=== PATIENT | female | born 1960 | race Caucasian/White ===

== ENCOUNTER 2016-09-12 15:52 | Observation (INO) | payer OTHER ==
[~2016-09-12] VITALS: Ht 162.6 cm; Wt 125.7 kg
[~2016-09-12 15:52] MED LIST: ALBU8.5H2 INHALATION; AMLO2.5T PO; ASPI-973 PO; ATRV10T PO; CALC-190 PO; CARV6.252 PO; CEPH500C PO; FLUT15.88 NOSTRIL; FURO-129 PO; HYDR1KIT TP; INSU100V28 SUBQ; ISOS30TA4 PO; LEVO175T5 PO; LISI-571 PO; LORA10CA PO; MULT-1018 PO; NITR0.4T6 SL; NPH,100V11 SUBQ; OXYC1TAB24 PO; RANI150C4 PO
[2016-09-12 15:57] VITALS: BP 163/71; PULSE 70; RESP 18; O2SAT 97
--- NOTE | 2016-09-12 16:04 | ED.REPORT ---
HPI-General Illness Date of Service Sep 12, 2016 ED Provider: Tony Dc MD Pt is a 56 year old female with a hx of heart attack, CHF, and a defibrillator presenting to the ED complaining of squeezing 8/10 chest pain radiating up towards left neck and jaw onset at 1530 today. Pain described as aching. The pain began while the pt was at rest at work. She reports similar symptoms last night which she took 2 Nitro for with some relief. She did not have any more Nitro left at home so she did not take any today. She states that this pain may be similar to the pain she had when she had a heart attack 2 years ago. Pain was not exacerbated by anything. Denies SOB, fever, chills, vision changes, or any other symptoms at this time. Nursing Notes Stated Complaint: HEART PAIN Chief Complaint: Chest Pain Nursing Notes Reviewed: Yes Allergies: Coded Allergies: azithromycin (Verified Adverse Reaction, Unknown, stomach cramps, 09/12/16) codeine (Verified Adverse Reaction, Unknown, Rash,Itching,, 03/02/15) Rash, vomiting, swelling hydrocodone (Unverified Adverse Reaction, Unknown, Nausea,Vomiting, ) Scheduled Aspirin (Aspirin) 81 Mg Tablet 81 MG PO HS Carvedilol (Carvedilol) 25 Mg Tablet 25 MG PO BID Digoxin (Digoxin) 125 Mcg Tablet 125 MCG PO HS Furosemide (Furosemide) 40 Mg Tablet 40 MG PO QAM Insulin Regular, Human (HUMulin-R U100 Insulin Vial) 100 Unit/1 Ml Vial 10-25 UNITS SUBQ TIDAC STATES AVERAGES ~20 UNITS/MEAL Isosorbide MN ER (Isosorbide MN ER) 30 Mg Tab.er.24h 30 MG PO QAM Levothyroxine (Levothyroxine) 175 Mcg Tablet 175 MCG PO QAM Lisinopril (Lisinopril) 10 Mg Tablet 10 MG PO BID Magnesium Oxide (Magox 400) 400 Mg Tablet 200 MG PO HS Multivitamin (Multi Vitamin Daily) 1 Each Tablet 1 EACH PO QAM NPH, Human Insulin Isophane (HUMulin-N U100 Insulin Vial) 100 Unit/1 Ml Vial 50 UNITS SUBQ BIDWM Nystatin (Nystatin) 60 Applic/15 Gm Cream 1 APPLIC TOP QAM Scheduled PRN Albuterol HFA (Proair HFA) 8.5 Gm Hfa.aer.ad 2 PUFFS INHALATION Q4H PRN PRN For Wheezing Fluticasone Propionate (Fluticasone Propionate) 50 Mcg/Actuation [place].susp 1 SPRAY NOSTRIL DAILY PRN PRN For Congestion Hydrocortisone (Adv Allergy Collection Kit) 2.5 % Kit 1 EACH TP BID PRN PRN For Itching Loperamide (Loperamide) 2 Mg Tablet 2 MG PO ASDIRECTED PRN PRN For Diarrhea or Loose Stool Loratadine (Claritin) 10 Mg Capsule 10 MG PO DAILY PRN PRN For Congestion Nitroglycerin SL (Nitroglycerin SL) 0.4 Mg Tab.subl 0.4 MG SL DIRECTED PRN PRN For Chest Pain Ranitidine (Ranitidine) 150 Mg Capsule 150 MG PO BID PRN PRN HEARTBURN OR REFLUX General Time Seen by MD: 16:04 Chief Complaint Chest pain Hx Obtained From: Patient Arrived By: Walk-in Sudden in Onset?: Yes Onset Occurred: 1 - 4 hours ago Symptom Duration: Since onset Location: : Chest Severity: Current: Pain level 2 out of 10 Severity: Maximum: Pain level 8 out of 10 Recent Healthcare: No recent doctor visit, No recent hospitalization Similar Sx Previous: Yes Past Medical History Past Medical History Notes: Cardiac Cath in December 2014 shows a chronic total occlusion of the LAD. No stent was placed. Past Medical History Heart attack 2 years ago Gastroparesis Neuropathy Reports: Congestive heart failure (most recent ejection fraction was 33%), Coronary artery disease, Diabetes mellitus (Type I), Hypertension Past Surgical History Defibrillator Cardiac catheterization Leg surgery Multiple eye surgeries Reports: Family History Both parents had Afib Smoking History Never Smoker Social History Alcohol Use: Denies alcohol use Drug Use: Denies drug use Ambulatory Status Independent Review of Systems Full Review of Systems Constitutional: Denies: Chills, Fever Respiratory: Denies: Shortness of breath Cardiovascular: Reports: Chest pain Neurologic: Denies: Vision change Complete sys rev & neg: except as marked. Physical Exam Nursing note and vitals reviewed. Constitutional: Well-developed, well-nourished. Not diaphoretic. Head: Normocephalic and atraumatic. Mouth/Throat: Oropharynx is clear and moist. No oropharyngeal exudate. Eyes: EOM are normal. Pupils are equal, round, and reactive to light. Neck: Supple, no tracheal deviation. Cardiovascular: Normal rate, regular rhythm. Equal and intact distal pulses throughout. Pulmonary/Chest: Effort normal and breath sounds normal. No respiratory distress. Abdominal: Soft. No distension. There is no tenderness, rebound, or guarding. Bowel sounds present. Musculoskeletal: Range of motion grossly intact, moving all extremities. No edema or tenderness appreciated. Neurological: AOx3. Grossly nonfocal exam. Strength and sensation intact and equal to bilateral upper and lower extremities. Skin: Warm and dry, no rashes or pallor appreciated. Psychiatric: Appropriate mood and affect. Behavior appears normal. Vital Signs Vital Signs Date Time Temp Pulse Resp B/P Pulse Ox O2 Delivery O2 Flow Rate FiO2 09/12/16 21:15 72 20 127/56 96 Room Air 09/12/16 20:50 72 16 135/52 95 Room Air 09/12/16 18:01 69 16 135/56 98 Room Air 09/12/16 15:57 36.7 70 18 163/71 97 Room Air Initial VS: Reviewed Interpretation & Diagnostics Lab Results Interpretation Result Diagram: 09/12/16 1629 09/12/16 1629 Test 09/12/16 16:29 09/12/16 16:30 09/12/16 18:09 White Blood Count 10.4th/mm3 (3.8-10.1) Red Blood Count 3.71mil/mm3 (3.90-5.20) Hemoglobin 10.3g/dL (12.0-15.6) Hematocrit 32.4% (35.0-46.0) Mean Corpuscular Volume 87.3fL (81-100) Mean Corpuscular Hemoglobin 27.8pg (27.0-35.0) Mean Corpuscular Hemoglobin Concent 31.8% (32.0-37.0) Red Cell Distribution Width 15.4% (12.3-15.4) Platelet Count 262bil/L (150-400) Neutrophils (%) (Auto) 62.6% (40-74) Lymphocytes (%) (Auto) 28.3% (14-46) Monocytes (%) (Auto) 6.4% (4-12) Eosinophils (%) (Auto) 2.1% (0-5) Basophils (%) (Auto) 0.3% (0-3) Sodium Level 135mEq/L (134-144) Potassium Level 4.1mEq/L (3.5-5.2) Chloride Level 94mEq/L (97-108) Carbon Dioxide Level 25mmol/L (18-29) Blood Urea Nitrogen 25mg/dL (6-24) Creatinine 0.91mg/dL (0.57-1.00) Estimat Glomerular Filtration Rate 92mL/min (>59) Glucose Level 97mg/dL (60-99) Calcium Level 9.2mg/dL (8.5-10.1) Magnesium Level 2.0mg/dL (1.6-2.6) Total Bilirubin 0.3mg/dL (0.0-1.2) Aspartate Amino Transf (AST/SGOT) 19U/L (0-50) Alanine Aminotransferase (ALT/SGPT) 18U/L (0-32) Alkaline Phosphatase 87U/L (25-150) Total Creatine Kinase 88U/L (21-215) Creatine Kinase MB 2.1ng/mL (0.0-5.3) Creatine Kinase MB % % (0.0-5.0) Troponin T < 0.010ug/L (0.0-0.011) Total Protein 7.6g/dL (6.4-8.4) Albumin 3.8g/dL (3.4-5.0) Hold Holt Top Tube Received (Received) Hold Urine Received (Received) ECG Interpretation ECG Interpretation: QRS now upright in v4. Otherwise no significant change. Time: 16:11 Interpreted by: ED physician Normal ECG Interpretation: Normal rate (71), Normal sinus rhythm X-Ray Chest Interpretation Chest Xray Interpretation: IMPRESSION: Stable cardiomegaly. No acute pulmonary findings. Dictated by: Fatimah Bueno M.D. on 09/12/2016 at 16:40 View: Portable, 1 view Interpretation / Wet Read by: Interpret - Radiologist Re-Eval/Medical Decision Med Decision/Clinical Course This is a 56-year-old female with a complex past medical history including severe multivessel coronary disease and CHF presenting to the ED for evaluation of chest pain that feels similar to previous angina. Nonexertional. Negative troponin. EKG shows no acute ischemic changes compared to previous. White count 10.4. Hemoglobin 10.3 stable from previous. Negative chest x ray. According to cath in December 2014, pt has a chronic total occlusion of the LAD. No stent was placed at that time. Discussed the case with Dr. Downs. Given concern for unstable angina/ACS, patient was started on heparin, nitroglycerin drip, and given clopidogrel. Plan admission for further management and evaluation. Discussed this with the patient at length. Time of Eval: 20:00 Patient Status: Condition improved Re-Evaluation/Progress Note: Discussed plan for admission. Pt understands and agrees. Consultation #1: Referral / Consult Name: Iggy Downs MD Consulted With: Cardiology Call Returned at: 19:11 Note: Wants 300 clopidogrel, nitro drip and Heparin drip. Consultation #2: Referral / Consult Name: Yandel Hernandez MD Consulted With: Hospitalist Call Returned at: 19:58 Tin Recovery Worker: Will see patient, Agrees with plan, Accepts admit Counseled Regarding: Diagnosis, Lab results, Need for admission Discharge & Departure Primary Impression: Chest pain Chest pain type: unspecified Qualified Code: R07.9 - Chest pain, unspecified Disposition: ADMITTED TO HOSPITAL Discharge Condition All VS Reviewed: Yes Condition: Improved Referrals: Alex Horowitz DO (PCP) Joana Barton MD, Stephen, MD Crit Care Except Billable Proc Time Spent: 30-74 minutes (30) Services Performed: Patient management by me, Time spent at bedside, Reviewing test results, Reviewing imaging, Discussing patient care, Documentation in record Critical Care Notes: Please see MDM. Garcia Attestation Portions of this note were transcribed by Hillary Hemphill. I, Dr. Dc personally performed the history, physical exam and medical decision-making; I reviewed and confirmed the accuracy of the information in the transcribed note. Signed by: Jose Pino, 09/12/2016 at 1958. copies to: Alex Horowitz DO; Joana Barton MD; Ry Barcenas MD Sanderson, William B MD Sep 12, 2016 16:04 HILLARY HEMPHILL Sep 12, 2016 16:17
[2016-09-12 16:32] LABS: BASOPHILS % (AUTO) 0.3 % (0-3); EOSINOPHILS % (AUTO) 2.1 % (0-5); MONOCYTES % (AUTO) 6.4 % (4-12); Mean Corpuscular Hemoglobin 27.8 pg (27.0-35.0); Mean Corpuscular Volume 87.3 fL (81-100); NEUTROPHILS % (AUTO) 62.6 % (40-74); Platelet Count 262 bil/L (150-400)
--- NOTE | 2016-09-12 16:43 | DRSVH ---
PROCEDURE: X-RAY CHEST ONE VIEW, PORTABLE ([id number]) INDICATIONS: CP TECHNIQUE: One view of the chest was acquired. COMPARISON: [facility], CR, XR CHEST 2VW, 03/19/2016, 14:24. FINDINGS: Surgical changes and devices: Failing cardiac defibrillator is unchanged. Lungs and pleura: No pleural effusions or pneumothorax. Lungs are clear. Mediastinum: Mediastinal contours appear normal. Heart size is enlarged, as before. Bones and chest wall: No suspicious bony lesions. Overlying soft tissues appear unremarkable. IMPRESSION: Stable cardiomegaly. No acute pulmonary findings. Dictated by: Fatimah Bueno M.D. on 09/12/2016 at 16:40 Approved by: Fatimah Bueno M.D. on 09/12/2016 at 16:40
[2016-09-12 17:21] LABS: TROPONIN T < 0.010 ug/L (0.0-0.011)
[2016-09-12 18:01] VITALS: BP 135/56; PULSE 69; RESP 16; O2SAT 98
[2016-09-12] MEDS ORDERED: Nitroglycerin 50 mg/250 mL D5W 50,000 MCG in IV Premix 1 EACH IV ONE (19:10)
[2016-09-12] MEDS ORDERED: Heparin 25K Unit/500mL 0.45 NS 25,000 UNIT in IV Premix 1 EACH IV ONE (19:20)
[2016-09-12] MEDS ORDERED: Heparin 5,000 Unit/mL Inj IVPUSH ONE (19:20)
[2016-09-12] MEDS ORDERED: LOPE2TAB32 PO (20:43)
[2016-09-12] MEDS ORDERED: DIGO125T73 PO (20:43)
[2016-09-12] MEDS ORDERED: MAGN400T29 PO (20:43)
[2016-09-12] MEDS ORDERED: MYCC TOP (20:43)
[2016-09-12] MEDS ORDERED: CARV25TA2 PO (20:43)
[2016-09-12] MEDS ORDERED: LISI10TA PO (20:43)
[2016-09-12] MEDS ORDERED: FURO40TA4 PO (20:43)
[2016-09-12 20:50] VITALS: BP 135/52; PULSE 72; RESP 16; O2SAT 95
[2016-09-12 21:15] VITALS: BP 127/56; PULSE 72; RESP 20; O2SAT 96
[2016-09-12 22:30] VITALS: BP 132/58; PULSE 71; RESP 16; O2SAT 98
--- NOTE | 2016-09-12 23:33 | PCM.HPMED ---
Subjective Date of Service Sep 12, 2016 Primary Provider: Admitting Physician: Lloyd Acevedo MD Primary Care Physician: Jairo Felton DO Attending Physician: Lloyd Acevedo MD Chief Complaint: Chest pain History of Present Illness: Alicia Abernathy is a 56 year old woman with past medical history of diabetes mellitus complicated by polyneuropathy including gastroparesis and lower extremity neuropathy, retinopathy, hypothyroidism, hypertension, TANYA on CPAP and obesity with prior history of WI and ischemic cardiomyopathy with reduced ejection fraction of 35-40% status post AICD implantation who presents to the [facility] emergency department today due to left-sided chest pain starting yesterday while at rest. The patient first noted chest pain yesterday which was relieved by her nitroglycerin but again returned this morning at which point she decided to come to the hospital. Yesterday at the worst point of her chest pain she did note a radiation from her chest to her left jaw and also to her left scapula. She denies any palpitations, fevers, chills, diaphoresis, nausea, vomiting or GERD. The patient has had left heart catheterization which did show a chronic LAD lesion. Of note the patient also states that she has recently developed psoriasis on her elbows and ankles and has developed bilateral joint swelling of her ankles, knees, wrists and elbows over the last several months. In the emergency department her vital signs were stable but notable for hypertension with blood pressure 163/71. Troponin was negative and EKG failed to show any acute ischemic changes. A cardiology consultation was obtained. Dr. Downs recommended a loading dose of Plavix, nitroglycerin drip and heparin drip. Patient currently feels chest pain-free Review of Systems: A comprehensive review of systems was conducted with the patient and found to be negative except as above in the History of Present Illness. Allergies Coded Allergies: azithromycin (Verified Adverse Reaction, Unknown, stomach cramps, 09/12/16) codeine (Verified Adverse Reaction, Unknown, Rash,Itching,, 03/02/15) Rash, vomiting, swelling hydrocodone (Unverified Adverse Reaction, Unknown, Nausea,Vomiting, ) Home Medications Alicia Abernathy. [id number] 1960 05/13/2016 10:55 AM 03/10 Start Date Medication Directions Stop Date 12/14/2014 aspirin 81 mg tablet,delayed release take 1 tablet by oral route every day 02/21/2016 atorvastatin 10 mg tablet take1 tablet by oral route every day 07/16/2015 Bactroban 2 % topical ointment apply by topical route 3 times every day a small amount to the affected area 07/18/2015 BD INSULIN SYR 1 ML [id number] USE TO INJECT INSULIN FOUR TIMES A DAY carvedilol 25 mg tablet take 1 tablet by oral route 2 times every day with food Claritin Liqui-Gel 10 mg capsule 03/19/2016 codeine 10 mg-guaifenesin 100 mg/5 mL oral liquid take 2.5 milliliter by oral route every bedtime as needed 03/22/2012 diabetic supplies, linkedü. Kit DIABETIC EXTRA-DEPTH SHOES and INSOLES 10/05/2015 digoxin 125 mcg tablet take 1 tablet by oral route every day 04/14/2016 Guaiatussin AC 10 mg-100 mg/5 mL oral liquid take 5-10 milliliter by oral route every 4 hours as needed for cough maybe just at bedtime 01/21/2016 Humulin N 100 unit/mL subcutaneous suspension INJECT 20-30units SUBCUTANEOUSLY wit every meal 01/21/2016 Humulin R 100 unit/mL injection solution INJECT 20-30 UNITS SUBCUTANEOUSLY BEFORE MEALS FOR DIABETES. EACH VIAL EXPIRES 28 DAYS AFTER FIRST USE. Imodium A-D 2 mg tablet take 2 tablet by oral route after 1st loose stool and 1 tablet (2 mg) after each next bowel movement; do not exceed 16 mg in 24hrs 01/21/2016 Insulin Syringe 1 mL 30 gauge x 5/16" uses insulin 4x a day 02/13/2016 isosorbide mononitrate ER 30 mg tablet,extended release 24 hr take 1 tablet by oral route every day in the morning 09/14/2015 Lasix 40 mg tablet take 1 tablet by oral route every day 04/17/2016 levothyroxine 175 mcg tablet TAKE ONE TABLET BY MOUTH DAILY 10/05/2015 lisinopril 5 mg tablet TAKE ONE TABLET twice a day magnesium 200 mg tablet take 1 by Oral route every day multivitamin tablet take 1 tablet by oral route every day with food Nitrostat 0.[address] 1 tablet by sublingual route at the 1st sign of attack; may repeat every 5 min until relief; if pain persists after 3 tablets in 15 min, prompt medical attention is recommended 12/03/2015 nystatin 100,000 unit/gram topical cream apply by topical route 2 times every day to the affected area(s) 05/13/2016 prednisone 50 mg tablet take 1 tablet by oral route every day 201605/13/2016 ProAir HFA 90 mcg/actuation aerosol inhaler inhale 2 puff by inhalation route every 4 - 6 hours as needed ranitidine 150 mg tablet take 1 tablet by oral route 2 times every day as needed for heartburn or acid reflux 04/04/2016 Test Strips STRIP Contour Blood Sugar Machine 5x a day for uncontrolled diabetes 250.02 PMH Diabetes mellitus complicated by polyneuropathy including gastroparesis and lower extremity neuropathy, retinopathy hypothyroidism hypertension TANYA on CPAP obesity WI and ischemic cardiomyopathy with reduced ejection fraction of 35-40% status post AICD implantation Surgical History AICD implantation Cataract surgery Family History Denies any family history of MIs Social History Hx Alcohol Use: No Hx Substance Use: No Hx Tobacco Use: No Smoking Status: Never Smoker Exam Vital Signs Vital Sign - Last Date Time Temp Pulse Resp B/P Pulse Ox O2 Delivery O2 Flow Rate FiO2 09/12/16 22:30 36.8 71 16 132/58 98 Room Air Exam General: No acute distress, well-developed, well-nourished, appropriately interactive, obese woman HEENT: Normocephalic, atraumatic. External ears without defect. Pupils equal, round, and reactive to light and accommodation. Anicteric sclerae, moist conjunctivae, and no lid lag. Oropharynx free of erythema and cobble stoning with moist mucosa. Neck: Supple with full range of motion. No jugular venous distension. No bruits. No lymphadenopathy or thyromegaly. Cardiovascular: Regular rate and rhythm with no murmurs, rubs, or gallops appreciated. Heart sounds distant due to body habitus Pulmonary: Clear to auscultation bilaterally with no crackles, wheezes, or rhonchi. Normal respiratory effort with no use of accessory muscles. Abdomen: Bowel tones present. Soft, nontender, nondistended. No hepatosplenomegaly or masses appreciated. Extremities: No clubbing, cyanosis, edema, or lymphadenopathy appreciated. Tenderness to palpation of bilateral wrists, elbows, knees. No obvious joint effusions. Skin: Normal temperature, turgor, and texture; no rash, ulcers, or subcutaneous nodules appreciated. Neurological: Cranial nerves grossly intact. Normal muscle strength, tone, and bulk. Reflexes, coordination, and sensory function within normal limits. No known gait impairment. Psychiatric: Normal mood and affect. Alert and oriented to person, place, and time. Lab and Diagnostics Labs Item Value Date Time Troponin T < 0.010 ug/L 09/12/161628 Result Diagram: 09/12/16162809/12/161628 X-Rays, CTs and MRIs X-RAY CHEST ONE VIEW, PORTABLE IMPRESSION: Stable cardiomegaly. No acute pulmonary findings. Dictated by: Fatimah Bueno M.D. on 09/12/2016 at 16:40 Assessment & Plan Alicia Abernathy is a 56 year old woman with past medical history of diabetes mellitus complicated by polyneuropathy including gastroparesis and lower extremity neuropathy, retinopathy, hypothyroidism, hypertension, TANYA on CPAP and obesity with prior history of WI and ischemic cardiomyopathy with reduced ejection fraction of 35-40% status post AICD implantation who presents to the [facility] emergency department today due to left-sided chest pain starting yesterday while at rest. Unstable angina, present on admission, active -Patient presenting with typical cardiac chest pain relieved by nitroglycerin. She also has a complex cardiac history including a chronic LAD lesion. -Cardiology has been consulted by the emergency department and will evaluate the patient tomorrow -Continue Patient on heparin drip. Patient given 300 mg of Plavix in the ED. She was given full dose aspirin. -Patient is currently pain-free so will discontinue nitroglycerin drip but it should be restarted if she develops chest pain again. -Nothing by mouth after midnight for possible procedure tomorrow -Continue patient's 81 mg aspirin daily, atorvastatin 10 mg, carvedilol 25 mg twice a day, lisinopril 5 mg -Continue to trend troponins. Telemetry monitoring/ Diabetes mellitus on insulin therapy, present on admission, active -With polyneuropathy complications including gastroparesis, lower extremity neuropathy and retinopathy -Patient appears to be using NPH with meals. Will hold off restarting outpatient regiment while patient is nothing by mouth for possible procedure tomorrow. -Correctional regular insulin Probable psoriatic arthritis, present on admission, after -Patient denies any overt eye problems however she does have seasonal allergies and chronically has eye irritation and itching -should undergo evaluation by manager of health as an outpatient Ischemic cardiomyopathy with reduced ejection fraction of 35-40% status post AICD implantation, present on admission, stable -Continue outpatient medications as above Hypertension, present on admission, stable -Continue outpatient medications TANYA on CPAP -Continue CPAP the patient's on settings Obesity with BMI of 48.9 CODE STATUS: Full code Patient is admitted under observation status with expected length of stay less than 2 midnights due to severity of presenting symptoms, risk of adverse event, and complexity of treatment plan. Tonya Espinoza DO Sep 12, 2016 23:32 Tonya Espinoza DO Sep 12, 2016 23:32
[2016-09-12] MEDS ORDERED: Senna-Docusate 8.6-50 mg Tablet PO PRN (23:35)
[2016-09-12] MEDS ORDERED: Ondansetron 2 mg/mL 2 mL Inj IVPUSH PRN (23:35)
[2016-09-12] MEDS ORDERED: Polyethylene Glycol (PEG) 17 Gm Powder PO PRN (23:35)
[2016-09-12] MEDS ORDERED: Alum-Mag Hydrox-Simeth 30 mL Suspension PO PRN (23:35)
[2016-09-13] VITALS (7 sets, daily range): BP systolic 117–135; BP diastolic 44–51; PULSE 67–75; RESP 13–23; O2SAT 93–96
[2016-09-13] MEDS ORDERED: Heparin 25K Unit/500mL 0.45 NS 25,000 UNIT in IV Premix 1 EACH IV SCH
[2016-09-13] MEDS ORDERED: Dextrose 10% 250 ML IV PRN (00:20)
[2016-09-13] MEDS: Sodium Chloride LOK Flush 10 mL Syringe IVFLUSH SCH ×4 (00:30→20:35)
[2016-09-13 00:42] LABS: Creatine Kinase 88 U/L (21-215)
[2016-09-13] MEDS: Insulin Human REGular 300 Unit/3 mL Inj SUBQ SCH ×4 (00:44→15:46)
[2016-09-13] MEDS: Heparin 5,000 Unit/mL Inj IVPUSH PRN ×2 (01:32→07:13)
--- NOTE | 2016-09-13 04:29 | NUR ---
Admit note. Admitted to [facility] 2012 from ER at 2215 and transferred from [facility] to [facility] independently. Heparin gtt at 1000 units/h. Nitroglycerin gtt at 1.5ml/h or 5mcg/min. Denies chest pain or discomforts. Dr Espinoza updated and nitroglycerin gtt d/aria per orders. Denies chest pain through the night. Heparin gtt adjusted per PTT heparin.
[2016-09-13 05:58] LABS: BASOPHILS % (AUTO) 0.3 % (0-3); EOSINOPHILS % (AUTO) 2.3 % (0-5); MONOCYTES % (AUTO) 6.5 % (4-12); Mean Corpuscular Hemoglobin 28.2 pg (27.0-35.0); Mean Corpuscular Volume 86.9 fL (81-100); NEUTROPHILS % (AUTO) 61.4 % (40-74); Platelet Count 236 bil/L (150-400)
[2016-09-13 06:37] LABS: Creatine Kinase 64 U/L (21-215)
[2016-09-13] MEDS ORDERED: Albuterol 2.5 mg/3 mL Inhalation Solution NEB PRN (07:00)
--- NOTE | 2016-09-13 13:22 | PCM.PNMED ---
Subjective Date of Service Sep 13, 2016 Subjective pt is still on heparin gtt chest pain free, denied SOB awaits cardiology eval two troponins negative. no EKG chg spoke to , decided to stop heparin gtt, proceed with stress test today Exam Vital Signs Vital Sign - Last Date Time Temp Pulse Resp B/P Pulse Ox O2 Delivery O2 Flow Rate FiO2 09/13/16 10:31 71 09/13/16 07:30 36.8 13 122/44 94 Room Air Intake and Output 09/12/16 09/12/16 09/13/16 Cumulative From/Thru 15:00 23:00 07:00 09/12/16 15:57 - 09/13/16 05:50 Intake Total 419 ml 419 ml Balance 419 ml 419 ml Intake Oral 240 ml 240 ml IV Total 179 ml 179 ml # Voids 1 2 3 Exam NAD, comfortably laying down on the bed no JVD, MMM, no LAD RRR, nl s1, s2 no mrg CTAB, no w,c S,ND,NT,normoactive BS+ warm, no edema, pulses 2/2 IVs and Medications Medications Reviewed: Medications were reviewed in detail Lab and Diagnostics Result Diagram: 09/13/16 0545 09/13/16 0545 X-Rays, CTs and MRIs X-RAY CHEST ONE VIEW, PORTABLE IMPRESSION: Stable cardiomegaly. No acute pulmonary findings. Dictated by: Fatimah Bueno M.D. on 09/12/2016 at 16:40 Assessment & Plan Alicia Abernathy is a 56 year old woman with past medical history of diabetes mellitus complicated by polyneuropathy including gastroparesis and lower extremity neuropathy, retinopathy, hypothyroidism, hypertension, TANYA on CPAP and obesity with prior history of [place] and ischemic cardiomyopathy with reduced ejection fraction of 35-40% status post AICD implantation who presents to the [facility] emergency department today due to left-sided chest pain starting yesterday while at rest. acute, active acute onset chest pain, present on admission, possible ACS or anginal chest pain.Serial EKG was not ischemic, troponinsx2 negative. Since pt was high risks with previous CAD-100%occ in LAD, non-obstructive CAD in RCA in 2014 cath, Chest pain relieved with nitroglycerin. patient was consulted , started DAPT,loading dose of plavix, heparin gtt. -pt remained clinically stable, no active chest pain overnight, decided to proceed with stress test after discussion with -continue aspirin, plavix, coreg 25 bid, lisinopril 10mg bid -hold heparin gtt today AM -awaits stress test result, possible d/c home 1-2days -continue telemetry Diabetes mellitus on insulin therapy, present on admission, with polyneuropathy complications including gastroparesis, lower extremity neuropathy and retinopathy. Uncontrolled in the setting of acute stress -uncontrolled >340s this AM, continue Humulin q6h while NPO, chronic, stable Probable psoriatic arthritis, present on admission, Patient denies any overt eye problems however she does have seasonal allergies and chronically has eye irritation and itching -should undergo evaluation by beef cattle farm manager as an outpatient Ischemic cardiomyopathy with reduced ejection fraction of 35-40% status post AICD implantation, present on admission, seemed euvolemic, continue lasix home dose, CHF meds as above Hypertension, present on admission, stable, continue BB, ACEI TANYA on CPAP -Continue CPAP the patient's on settings Obesity with BMI of 48.9 CODE STATUS: Full code dispo:awaits stress test result, possible d/c home 1-2days Time spent 35 minutes Ayaz Arora MD Sep 13, 2016 12:21
--- NOTE | 2016-09-13 15:56 | NUR ---
Social Work Note: Screen Note/Multidisciplinary Rounds Data& Assessment: EMR reviewed. Pt was discussed in AM rounds, Per MD pt is will be undergoing stress test today. Pt is currently SBA in her room. No MD orders at this time. Alicia Abernathy is a 56 year old female admitted under observation on 09/12/2016 for unstable angina and ACS. Pt has ICD. Pt lives in [place] and is independent at baseline. Pt PCP is Jairo Felton DO and she as [facility] insurance coverage. No discharge needs identified at this time. SW to continue to follow if any needs arise. Plan: Anticipated discharge home via POV when medically ready. No MD orders or discharge needs identified at this time. SW to continue to follow if any needs arise. HANNAH Mendoza
[2016-09-13] MEDS ORDERED: Insulin Human REGular Inj 100 UNIT in 0.9% Sodium Chloride-Pha MIX 100 ML IV SCH (16:10)
--- NOTE | 2016-09-13 16:37 | DRSVH ---
PROCEDURE: 1 DAY PHARMACOLOGICAL STRESS TEST Rest and pharmacological stress myocardial perfusion SPECT with gated imaging and ejection fraction RADIOPHARMACEUTICAL: 15.7 mCi Tc-99m tetrafosmin IV at rest and 44.3 mCi Tc-99m tetrafosmin IV at pea k effect of pharmacological stress. A [id number] was performed. INDICATIONS: CORONARY ARTERY DISEASE, R/O ACS TECHNIQUE: Radiopharmaceutical was injected at peak stress test, and also at rest. SPECT images wer e obtained. SPECT myocardial perfusion images were displayed in short axis, horizontal long axis, an d vertical long axis views. Gated images were reviewed using PowersetQUANT software. COMPARISON: None. CARDIAC STRESS: A pharmacologic stress test was performed under the supervision of an attending staff, using an infus ion of Lexiscan. Hemodynamic data: There is normal blood pressure and heart rate response to pharmacologic stress. Symptoms: The patient denied anginal chest pain. Aminophylline: None given EKG: No diagnostic changes of ischemia; occasional PVCs. FINDINGS: Raw data: There is good myocardial uptake of radiotracer. No significant motion artifacts. Left ventricle function: Gated images demonstrate diffuse hypokinesis, especially prominence involvi ng the apex, anteroapical, and inferoapical law. Left ventricle resting end diastolic volume is 291 mL. Left ventricle stress ejection fraction is 42%; normal range is above 45%. Myocardial perfusion: There is a large region of absent myocardial uptake involving the anteroapical wall, apex, as well as the inferior wall exiting from it hard to apex. This is seen on both stress a nd rest imaging. There are no reversible regions of perfusion to indicate ischemia. IMPRESSION: 1. Large infarct involving the anteroapical wall, apex, and inferior wall as described above. No reve rsible regions of perfusion to indicate ischemia. 2. Diffuse hypokinesis especially involving the apex, with reduced left ventricular ejection fraction of 42%. PQRS ATTESTATIONS: Measure 322 - Is this imaging test primarily performed on a low-risk surgery patient for preoperative evaluation within 30 days preceding their low-risk non-cardiac surgery? Low-risk surgery is defined as cardiac or myocardial infarction less than 1%, including (but not limited to) endoscopic pr ocedures, superficial procedures, cataract surgery, and excisional breast surgery: Answer: No Measure 323 - Is this imaging test performed primarily for the monitoring of an asymptomatic patient who had percutaneous coronary intervention on the visit date or within 2 years of the visit date? An swer: No Measure 324 - Is this imaging test performed primarily for the initial detection and risk assessment on an asymptomatic, low coronary heart disease patient? Low CHD risk definition = clinicians should consider the maximum number of available patient factors used to estimate risk based on [place] (A TP III criteria), typically age, gender, diabetes, smoking status, and use of blood pressure medicati on, and integrate age appropriate estimates for missing elements, such as LDL or standard blood press ure. Answer: No Dictated by: Jacob Guthrie M.D. on 09/13/2016 at 16:26 Approved by: Jacob Guthrie M.D. on 09/13/2016 at 16:34
--- NOTE | 2016-09-13 18:01 | PCM.DIMED ---
Discharge Instructions Date of Service Sep 13, 2016 Dates of Hospitalization Sep 12, 2016 at 21:35 Discharge Diagnosis Discharge Diagnosis chest pain, anginal Diet Discharge Diet: Low fat, Low Sodium, Heart Healthy Activity Discharge Activity: No restrictions Call your provider Call your provider for: Shortness of breath, Chest pain Patient Instructions Patient Instructions You were hospitalized with chest pain, concern for heart attach. Serial work- ups including stress test showed no active signs of heart attack but previous one. Your sugar was increased significantly given acute stress and sub-optimal dose of insulin dosing. Please note that you need to continue monitor your glucose once you get home, follow up with your primary doctor as scheduled. Follow-up Provider: ANTHONY MATTHEWS DO Follow-up with PCP in: 1 week Ayaz Arora MD Sep 13, 2016 18:01
--- NOTE | 2016-09-13 18:44 | NUR ---
Stress Test/Insulin gtt Cardiac:Pt denies CP, Tele: SR 70s. Stress test this afternoon, stress test shows no abnormalities. Resp: Pt denies SOB, SPO2 high 90s on RA. GI/: Pt denies n/v/d, pt is NPO pending cardiology consult. Blood sugars elevated today. Pt NPO till post stress test, had muffin following test and sugars up to 435 Dr inderjit. Insulin gtt started. Pt can discharge once sugars less than 200. Neuro: A&Ox3, LUCY
--- NOTE | 2016-09-13 20:05 | PCM.DC.MED ---
Discharge Summary Date of Service Sep 13, 2016 Dates of Hospitalization Date of Hospital Admission Sep 12, 2016 at 21:35 Date of Discharge: Sep 13, 2016 Providers: Admitting Physician: Tonya Espinoza DO Primary Care Physician: Jairo Matthews DO Attending Physician: Ayaz Arora MD Diagnosis at Time of Discharge Diagnosis at Time of Discharge acute dx chest pain, anginal, stress test negative. uncontrolled DMwith polyneuropathy complications including gastroparesis, lower extremity neuropathy and retinopathy. chronic dx Probable psoriatic arthritis, Ischemic cardiomyopathy with reduced ejection fraction of 35-40% status post AICD implantation, Hypertension TANYA on CPAP Obesity with BMI of 48.9 Consultations cardiology Procedures XRay, CTs & MRIs X-RAY CHEST ONE VIEW, PORTABLE IMPRESSION: Stable cardiomegaly. No acute pulmonary findings. Dictated by: Fatimah Bueno M.D. on 09/12/2016 at 16:40 ECG 12 Lead NSR, oldRBBB Other Diagnostics PROCEDURE: 1 DAY PHARMACOLOGICAL STRESS TEST Rest and pharmacological stress myocardial perfusion SPECT with gated imaging and ejection fraction RADIOPHARMACEUTICAL: 15.7 mCi Tc-99m tetrafosmin IV at rest and 44.3 mCi Tc-99m tetrafosmin IV at peak effect of pharmacological stress. A [id number] was performed. INDICATIONS: CORONARY ARTERY DISEASE, R/O ACS TECHNIQUE: Radiopharmaceutical was injected at peak stress test, and also at rest. SPECT images were obtained. SPECT myocardial perfusion images were displayed in short axis, horizontal long axis, and vertical long axis views. Gated images were reviewed using Carrot.mx software. COMPARISON: None. CARDIAC STRESS: A pharmacologic stress test was performed under the supervision of an attending staff, using an infusion of Lexiscan. Hemodynamic data: There is normal blood pressure and heart rate response to pharmacologic stress. Symptoms: The patient denied anginal chest pain. Aminophylline: None given EKG: No diagnostic changes of ischemia; occasional PVCs. FINDINGS: Raw data: There is good myocardial uptake of radiotracer. No significant motion artifacts. Left ventricle function: Gated images demonstrate diffuse hypokinesis, especially prominence involving the apex, anteroapical, and inferoapical law. Left ventricle resting end diastolic volume is 291 mL. Left ventricle stress ejection fraction is 42%; normal range is above 45%. Myocardial perfusion: There is a large region of absent myocardial uptake involving the anteroapical wall, apex, as well as the inferior wall exiting from it hard to apex. This is seen on both stress and rest imaging. There are no reversible regions of perfusion to indicate ischemia. IMPRESSION: 1. Large infarct involving the anteroapical wall, apex, and inferior wall as described above. No reversible regions of perfusion to indicate ischemia. 2. Diffuse hypokinesis especially involving the apex, with reduced left ventricular ejection fraction of 42%. PQRS ATTESTATIONS: Measure 322 - Is this imaging test primarily performed on a low-risk surgery patient for preoperative evaluation within 30 days preceding their low-risk non- cardiac surgery? Low-risk surgery is defined as cardiac or myocardial infarction less than 1%, including (but not limited to) endoscopic procedures, superficial procedures, cataract surgery, and excisional breast surgery: Answer : No Measure 323 - Is this imaging test performed primarily for the monitoring of an asymptomatic patient who had percutaneous coronary intervention on the visit date or within 2 years of the visit date? Answer: No Measure 324 - Is this imaging test performed primarily for the initial detection and risk assessment on an asymptomatic, low coronary heart disease patient? Low CHD risk definition = clinicians should consider the maximum number of available patient factors used to estimate risk based on [place] ( ATP III criteria), typically age, gender, diabetes, smoking status, and use of blood pressure medication, and integrate age appropriate estimates for missing elements, such as LDL or standard blood pressure. Answer: No Dictated by: Jacob Guthrie M.D. on 09/13/2016 at 16:26 Approved by: Jacob Guthrie M.D. on 09/13/2016 at 16:34 Brief History HPI obtained by Dr.Yanchuk Alicia Avaloson is a 56 year old woman with past medical history of diabetes mellitus complicated by polyneuropathy including gastroparesis and lower extremity neuropathy, retinopathy, hypothyroidism, hypertension, TANYA on CPAP and obesity with prior history of CT and ischemic cardiomyopathy with reduced ejection fraction of 35-40% status post AICD implantation who presents to the [facility] emergency department today due to left-sided chest pain starting yesterday while at rest. The patient first noted chest pain yesterday which was relieved by her nitroglycerin but again returned this morning at which point she decided to come to the hospital. Yesterday at the worst point of her chest pain she did note a radiation from her chest to her left jaw and also to her left scapula. She denies any palpitations, fevers, chills, diaphoresis, nausea, vomiting or GERD. The patient has had left heart catheterization which did show a chronic LAD lesion. Of note the patient also states that she has recently developed psoriasis on her elbows and ankles and has developed bilateral joint swelling of her ankles, knees, wrists and elbows over the last several months. In the emergency department her vital signs were stable but notable for hypertension with blood pressure 163/71. Troponin was negative and EKG failed to show any acute ischemic changes. A cardiology consultation was obtained. Dr. Downs recommended a loading dose of Plavix, nitroglycerin drip and heparin drip. Patient currently feels chest pain-free Hospital Course Alicia Abernathy is a 56 year old woman with past medical history of diabetes mellitus complicated by polyneuropathy including gastroparesis and lower extremity neuropathy, retinopathy, hypothyroidism, hypertension, TANYA on CPAP and obesity with prior history of CT and ischemic cardiomyopathy with reduced ejection fraction of 35-40% status post AICD implantation who presents to the [facility] emergency department today due to left-sided chest pain starting yesterday while at rest. acute dx acute onset chest pain, initially thought to be Unstable angina since pt was high risks of ACS with previous CAD-100%occ in LAD, non-obstructive CAD in RCA in 2015 cath, chest pain relieved with nitroglycerin. as per recommendation, pt was started on aspirin, plavix, heparin gtt on admission. Serial EKG didn't show st/t changes. Troponinsx2 negative. pt eventually underwent NM stress test which showed large fixed defects involving the anteroapical wall, apex, and inferior wall. however, no reversible defects suggestive of ischemia, pt deemed safe for d/c. Diabetes mellitus on insulin therapy, with polyneuropathy complications including gastroparesis, lower extremity neuropathy and retinopathy. Glucose was difficulty to control, increased up to 400s, pt was on Humulin, briefly on insulin gtt, glucose was stable upon d/c. Since pt is capable of titrating insulin at home,asked to monitor glc upon d/c. chronic dx Probable psoriatic arthritis, present on admission, Patient denies any overt eye problems however she does have seasonal allergies and chronically has eye irritation and itching -should undergo evaluation by metal cut off saw tender as an outpatient Ischemic cardiomyopathy with reduced ejection fraction of 35-40% status post AICD implantation, present on admission, seemed euvolemic, continue lasix home dose, CHF meds as above Hypertension, present on admission, stable, continue BB, ACEI TANYA on CPAP -Continue CPAP the patient's on settings Obesity with BMI of 48.9 Exam Vital Signs (Last) Date Time Temp Pulse Resp B/P Pulse Ox O2 Delivery O2 Flow Rate FiO2 09/13/16 16:15 36.9 75 16 132/45 96 Room Air Exam pt was examined on the day of d/c Test 09/12/16 16:29 09/12/16 16:30 09/12/16 18:09 09/13/16 05:45 Magnesium Level 2.0mg/dL (1.6-2.6) Total Bilirubin 0.3mg/dL (0.0-1.2) Aspartate Amino Transf (AST/SGOT) 19U/L (0-50) Alanine Aminotransferase (ALT/SGPT) 18U/L (0-32) Alkaline Phosphatase 87U/L (25-150) Total Protein 7.6g/dL (6.4-8.4) Albumin 3.8g/dL (3.4-5.0) Hold Holt Top Tube Received (Received) Hold Urine Received (Received) White Blood Count 9.7th/mm3 (3.8-10.1) Red Blood Count 3.73mil/mm3 (3.90-5.20) Hemoglobin 10.5g/dL (12.0-15.6) Hematocrit 32.4% (35.0-46.0) Mean Corpuscular Volume 86.9fL (81-100) Mean Corpuscular Hemoglobin 28.2pg (27.0-35.0) Mean Corpuscular Hemoglobin Concent 32.4% (32.0-37.0) Red Cell Distribution Width 15.3% (12.3-15.4) Platelet Count 236bil/L (150-400) Neutrophils (%) (Auto) 61.4% (40-74) Lymphocytes (%) (Auto) 29.0% (14-46) Monocytes (%) (Auto) 6.5% (4-12) Eosinophils (%) (Auto) 2.3% (0-5) Basophils (%) (Auto) 0.3% (0-3) Sodium Level 135mEq/L (134-144) Potassium Level 4.5mEq/L (3.5-5.2) Chloride Level 99mEq/L (97-108) Carbon Dioxide Level 23mmol/L (18-29) Blood Urea Nitrogen 19mg/dL (6-24) Creatinine 0.75mg/dL (0.57-1.00) Estimat Glomerular Filtration Rate 115mL/min (>59) Glucose Level 327mg/dL (60-99) Calcium Level 8.6mg/dL (8.5-10.1) Total Creatine Kinase 64U/L (21-215) Creatine Kinase MB 1.4ng/mL (0.0-5.3) Creatine Kinase MB % % (0.0-5.0) Troponin T 0.010ug/L (0.0-0.011) Triglycerides Level 244mg/dL (0-149) Cholesterol Level 153mg/dL (100-199) LDL Cholesterol, Calculated 78.200mg/dL (0-99) VLDL Cholesterol 48.800mg/dL HDL Cholesterol 26mg/dL (>39) Cholesterol/HDL Ratio 5.88 (0.0-4.4) Test 09/13/16 12:00 Activated Partial Thromboplast Time 33.2sec (22.8-33.0) Discharge Medications Discharge Medications Aspirin (Aspirin) 81 Mg Tablet 81 MG PO HS (Reported) Carvedilol (Carvedilol) 25 Mg Tablet 25 MG PO BID (Reported) Digoxin (Digoxin) 125 Mcg Tablet 125 MCG PO HS (Reported) Furosemide (Furosemide) 40 Mg Tablet 40 MG PO QAM (Reported) Insulin Regular, Human (HUMulin-R U100 Insulin Vial) 100 Unit/1 Ml Vial 10-25 UNITS SUBQ TIDAC (Reported) STATES AVERAGES ~20 UNITS/MEAL Isosorbide MN ER (Isosorbide MN ER) 30 Mg Tab.er.24h 30 MG PO QAM (Reported) Levothyroxine (Levothyroxine) 175 Mcg Tablet 175 MCG PO QAM (Reported) Lisinopril (Lisinopril) 10 Mg Tablet 10 MG PO BID (Reported) Magnesium Oxide (Magox 400) 400 Mg Tablet 200 MG PO HS (Reported) Multivitamin (Multi Vitamin Daily) 1 Each Tablet 1 EACH PO QAM (Reported) NPH, Human Insulin Isophane (HUMulin-N U100 Insulin Vial) 100 Unit/1 Ml Vial 50 UNITS SUBQ BIDWM (Reported) Nystatin (Nystatin) 60 Applic/15 Gm Cream 1 APPLIC TOP QAM (Reported) As needed Albuterol HFA (Proair HFA) 8.5 Gm Hfa.aer.ad 2 PUFFS INHALATION Q4H PRN PRN For Wheezing (Reported) Fluticasone Propionate (Fluticasone Propionate) 50 Mcg/[place].susp 1 SPRAY NOSTRIL DAILY PRN PRN For Congestion (Reported) Hydrocortisone (Adv Allergy Collection Kit) 2.5 % Kit 1 EACH TP BID PRN PRN For Itching (Reported) Loperamide (Loperamide) 2 Mg Tablet 2 MG PO ASDIRECTED PRN PRN For Diarrhea or Loose Stool (Reported) Loratadine (Claritin) 10 Mg Capsule 10 MG PO DAILY PRN PRN For Congestion ( Reported) Nitroglycerin SL (Nitroglycerin SL) 0.4 Mg Tab.subl 0.4 MG SL DIRECTED PRN PRN For Chest Pain (Reported) Ranitidine (Ranitidine) 150 Mg Capsule 150 MG PO BID PRN PRN HEARTBURN OR REFLUX (Reported) Followup Plan Disposition: home Discharge Diet: Low fat, Low Sodium, Heart Healthy Discharge Activity: No restrictions Patient Instructions You were hospitalized with chest pain, concern for heart attach. Serial work- ups including stress test showed no active signs of heart attack but previous one. Your sugar was increased significantly given acute stress and sub-optimal dose of insulin dosing. Please note that you need to continue monitor your glucose once you get home, follow up with your primary doctor as scheduled. Follow-up Provider: JAIRO MATTHEWS DO Follow-up with PCP in: 1 week Time spent 65min Ayaz Arora MD Sep 13, 2016 20:05
[2016-09-13] MEDS ORDERED: Insulin GLARgine 100 Unit/mL Syringe SUBQ SCH (21:00)
--- NOTE | 2016-09-13 23:26 | NUR ---
Discharge Per MD, insulin drip discontinued at approx. 2155 after HS Lantus administration, with instructions to recheck blood sugar in approx. 45min-1hr. Upon reassessment at 2245, blood sugar stable at 266; paged and approved discharge at that time. Patient discharged at approx. 2300 [address] wheelchair to car accompanied by this RN; all belongings with patient including valuables collected from safe. Both verbal and written discharge instructions given to pt, pt verbalized understanding.
== END 2016-09-13 23:00 | disposition home or self-care (01) ==
LOC: SED 15:52 → PCC 20:04 → UNDOADMOB 20:04 → CCU 21:35 → PCC 23:30
PROVIDERS: ADMIT Internal Medicine; ATTEND Internal Medicine
DX: R07.89 Other chest pain (principal); E11.65 Type 2 diabetes mellitus with hyperglycemia; E11.42 Type 2 diabetes mellitus with diabetic polyneuropathy; E11.43 Type 2 diabetes mellitus with diabetic autonomic (poly)neuropathy; K31.84 Gastroparesis; E11.319 Type 2 diabetes mellitus with unspecified diabetic retinopathy without macular edema; I25.5 Ischemic cardiomyopathy; I11.0 Hypertensive heart disease with heart failure; G47.33 Obstructive sleep apnea (adult) (pediatric); E66.9 Obesity, unspecified; Z68.42 Body mass index [BMI] 45.0-49.9, adult; I25.10 Atherosclerotic heart disease of native coronary artery without angina pectoris; E03.9 Hypothyroidism, unspecified; I25.2 Old myocardial infarction; I50.9 Heart failure, unspecified; Z95.810 Presence of automatic (implantable) cardiac defibrillator; Z79.4 Long term (current) use of insulin; Z79.82 Long term (current) use of aspirin; Z79.51 Long term (current) use of inhaled steroids
CPT/HCPCS: 36415; 71010; 78452; 80048; 80053; 80061; 82550; 82553; 83036; 83735; 84484; 85025; 85730; 93005; 93017; 96374; 96376; 99291; A9502; J1644; J1815; J2785